=== PATIENT | female | born 1950 ===

== ENCOUNTER → 2018-08-05 18:39 | Outpatient (REF) | payer MEDICARE, OTHER, SELFPAY ==
[2018-08-05 19:35] LABS: Erythrocyte Sedimentation Rate 9 MM/HR (0-20)
== END ==
LOC: LAB 18:39
PROVIDERS: Visit Provider Physician Assistant
DX: M34.83 Systemic sclerosis with polyneuropathy (principal)
CPT/HCPCS: 85651